=== PATIENT | female | born 1980 | race Caucasian/White ===

== ENCOUNTER → 2024-02-12 | Outpatient (REF) | payer OTHER ==
[2024-02-14 13:37] LABS: HPV APTIMA Detected (Not Detected)
== END ==
LOC: M SFHCWAGY 12:36
PROVIDERS: ATTEND Nurse Practitioner Family
DX: Z12.4 Encounter for screening for malignant neoplasm of cervix (principal); R87.5 Abnormal microbiological findings in specimens from female genital organs
CPT/HCPCS: 87624; G0123

== ENCOUNTER → 2024-03-16 | Outpatient (CLI) | payer OTHER | LOC: M WHC 09:39 | PROVIDERS: ATTEND Nurse Practitioner Family | DX: Z12.31 Encounter for screening mammogram for malignant neoplasm of breast (principal) ==

== ENCOUNTER 2024-05-10 12:08 | Emergency (ER) | payer OTHER ==
[~2024-05-10] VITALS: Ht 157.5 cm; Wt 103.7 kg
[2024-05-10 12:14] VITALS: BP 142/92; TEMP 97; O2SAT 98
== END 2024-05-10 16:07 | disposition left against medical advice (07) ==
LOC: M ED 12:08
DX: Z53.21 Procedure and treatment not carried out due to patient leaving prior to being seen by health care provider (principal)

== ENCOUNTER → 2024-05-11 | Outpatient (CLI) | payer OTHER | LOC: M PLAIMG 09:57 | PROVIDERS: ATTEND Physician Assistant Medical | DX: K08.89 Other specified disorders of teeth and supporting structures (principal) ==

== ENCOUNTER 2024-06-22 07:31 | Day surgery (SDC) | payer OTHER ==
[~2024-06-22] VITALS: Ht 157.5 cm; Wt 100.5 kg
[~2024-06-22 07:31] MED LIST: APAP500T10 PO; CHLO25TA PO; IBUP200C28 PO; NS 250 ML IV ONE
[2024-06-22] MEDS ORDERED: propofoL 200 MG/20 ML VIAL As Ordered ONE (09:09)
[2024-06-22 09:29] VITALS: TEMP 97.9
[2024-06-22] MEDS ORDERED: PHENYLephrine 500MCG 5ML (100MCG/ML) SYRINGE As Ordered ONE (09:56)
[2024-06-22 10:07] VITALS: BP 119/80; O2SAT 98
[2024-06-22] MEDS ORDERED: fentaNYL 100 MCG/2 ML INJECTION As Ordered ONE (10:24)
[2024-06-22] MEDS ORDERED: GLUCAGON INJ 1MG VIAL As Ordered ONE (10:33)
[2024-06-22] MEDS ORDERED: GLYCOPYRROLATE INJ 0.2 MG/ML 2 ML VIAL As Ordered ONE (10:35)
[2024-06-22] MEDS ORDERED: METOCLOPRAMIDE INJ 10MG/2ML VIAL As Ordered ONE (10:35)
== END 2024-06-22 10:15 | disposition home or self-care (01) ==
LOC: M OPP 07:31
PROVIDERS: ATTEND Surgery
DX: Z12.11 Encounter for screening for malignant neoplasm of colon (principal); K57.30 Diverticulosis of large intestine without perforation or abscess without bleeding; K64.9 Unspecified hemorrhoids; Z80.0 Family history of malignant neoplasm of digestive organs; I10 Essential (primary) hypertension; G43.909 Migraine, unspecified, not intractable, without status migrainosus; Z79.899 Other long term (current) drug therapy; Z88.8 Allergy status to other drugs, medicaments and biological substances; E78.00 Pure hypercholesterolemia, unspecified
CPT/HCPCS: 45378; J1596; J1610; J2371; J3010

== ENCOUNTER → 2025-03-17 | Outpatient (CLI) | payer OTHER ==
[~2025-03-17] MED LIST changes: -NS 250 ML IV ONE
== END ==
LOC: M WHC 13:53
PROVIDERS: ATTEND Advanced Practice Midwife
DX: Z12.31 Encounter for screening mammogram for malignant neoplasm of breast (principal); R92.313 Mammographic fatty tissue density, bilateral breasts

== ENCOUNTER → 2025-03-17 | Outpatient (CLI) | payer OTHER ==
[2025-03-17 17:10] LABS: ALT/SGPT 21.0 U/L (7.0-40); AST/SGOT 21.0 U/L (<34); CALCIUM LEVEL 9.2 MG/DL (8.5-10.1); CARBON DIOXIDE LEVEL 29.0 MMOL/L (20-31); CHLORIDE LEVEL 99.0 MMOL/L (98-107); CHOLESTEROL LEVEL 241.0 MG/DL (<200); CHOLESTEROL RISK RATIO 7.39 (<5); CREATININE FOR GFR 0.92 MG/DL (0.55-1.30); GLOMERULAR FILTRATION RATE 78.3 (>58); LDL CHOLESTEROL 171.8 MG/DL (<100); NON-HDL-C 208.4 MG/DL; PLATELET COUNT, AUTOMATED 348 10^3/uL (150-450); POTASSIUM SERUM 3.7 MMOL/L (3.5-5.1); SODIUM LEVEL 139.0 MMOL/L (136-145); TRIGLYCERIDES LEVEL 183.0 MG/DL (<150)
[2025-03-17 17:38] LABS: ESTIMATED AVERAGE GLUCOSE 108.0 MG/DL (60-110)
[2025-03-19 15:20] LABS: HPV APTIMA Detected (Not Detected)
== END ==
LOC: M PLALAB 15:04
PROVIDERS: ATTEND Advanced Practice Midwife
DX: Z00.00 Encounter for general adult medical examination without abnormal findings (principal); Z12.4 Encounter for screening for malignant neoplasm of cervix
CPT/HCPCS: 36415; 80053; 80061; 83036; 84443; 85027; 87624; G0123